=== PATIENT | female | born 2000 | race Caucasian/White ===

== ENCOUNTER 2021-07-01 17:55 | Emergency (ER) | payer OTHER, SELFPAY ==
--- NOTE | 2021-07-01 18:00 | ED.EAR ---
HPI - Ear Problem General Chief complaint: Ear Stated complaint: ear pain Time Seen by Provider: 07/01/21 18:00 Source: patient, RN notes reviewed and old records reviewed Mode of arrival: ambulatory Limitations: no limitations History of Present Illness HPI Narrative: 20-year-old female presents to the [facility] with complaints of right ear pain. Since last night. No treatment prior to arrival. MD Complaint: ear pain Related Data Home Medications Medication Instructions Recorded Confirmed medroxyprogesterone 150 mg/mL 150 mg IM [id number] 07/22/19 07/22/19 intramuscular suspension Allergies Allergy/AdvReac Type Severity Reaction Status Date / Time No Known Allergies Allergy Mild Verified 07/01/21 17:56 Review of Systems Review of Systems: All systems reviewed & are unremarkable except as noted in HPI and below Constitutional: Constitutional: Reports no additional constitutional complaints, Denies chills and Denies fever(s) Eyes: Eyes: Reports no additional eye complaints ENT: Reports as per HPI, Denies change in voice, Denies dental pain, Denies vertigo, Denies dizziness and Denies throat swelling Comments: Ear pain right Cardiovascular: Cardiovascular: Denies no additional cardiovascular complaints, Denies chest pain and Denies dyspnea Respiratory: Respiratory: Denies no additional respiratory complaints, Denies cough and Denies dyspnea Gastrointestinal: Gastrointestinal: Reports no additional gastrointestinal complaints, Denies abdominal pain, Denies nausea and Denies vomiting Musculoskeletal: Musculoskeletal: Reports no additional musculoskeletal complaints Integumentary/Breasts: Skin/Breast: Reports system reviewed and no additional complaints, except as docu Neurologic: Reports system reviewed and no additional complaints, except as documented, Denies vertigo and Denies dizziness Psychiatric: Psychiatric: Reports no additional psychiatric complaints Allergic/Immunologic: Allergic/Immunologic: Reports no additional allergic/immunologic complaints and Denies throat swelling PMFSH Past Medical History Medical History Patient denies medical problems Surgical History Surgical History (Updated 07/01/21 @ 18:14 by Angeline Wagner) No significant past surgical history Family History Family History Father Diabetes mellitus Hypertension Mother Lung cancer Social History Social History Smoking status: Never smoker Alcohol intake: never Substance use: never Substance use type: does not use Gender identity (if verbalized by the patient): Female Comments At the time of my signature, I reviewed and agree with the nursing past medical, surgical, social, and family history. There is no relevant family history pertinent to the patient complaint. Exam Const: General: healthy appearing, no acute distress and alert Nutritional Appearance: well nourished Orientation/consciousness: patient oriented x3 Limitations: no limitations HENMT: Head: normal to inspection Ears: external ears normal, TM's normal bilaterally and EAC's normal General nose exam: Normal external nose present and Normal nasal mucous membranes and turbinates present Face and sinus: normal facial exam Mouth: Yes Normal oral and palatal mucosa present and Yes moist mucous membranes Teeth and gingiva: abnormal tooth and associated gingiva lower right third molar with associated gingival edema and enamel fractured and poor dentition Teeth image: 1. Severely decayed teeth. Surrounding gingiva red, inflamed Throat: posterior oropharynx normal, tonsils normal and uvula midline Eyes: Conjunctivae: conjunctivae normal Pupils: Equal, round and reactive pupils present Neck: Neck: normal visual inspection, no lymphadenopathy and no meningeal signs Chest: Chest palpation & inspect
[2021-07-01 18:03] VITALS: BP 136/85; PULSE 97; RESP 18; TEMP 36.5; O2SAT 100
== END 2021-07-01 18:15 | disposition home or self-care (01) ==
PROVIDERS: Emergency Provider Nurse Practitioner; PCP Family Medicine
DX: K02.9 Dental caries, unspecified (principal); K04.7 Periapical abscess without sinus
CPT/HCPCS: 99213; G0463

== ENCOUNTER 2024-01-11 20:56 | Emergency (ER) | payer BC, MEDICAID, SELFPAY ==
[2024-01-11 21:02] VITALS: BP 116/74; PULSE 99; RESP 16; TEMP 36.6; O2SAT 100
[2024-01-11 23:02] LABS: Appearance Urine Cloudy (Clear); Bacteria Urine 4+ /hpf; Bilirubin Urine Negative (Negative); Blood Urine Negative (Negative); Color Urine Yellow (Yellow); Glucose Urine UA Negative (Negative); Ketones Urine Trace mg/dL (Negative); Leukocyte Esterase Ur Negative LEU/UL (Negative); Mucus Urine Present /lpf; Need Manual Microscopic Reviewed; Nitrate Urine Negative (Negative); Non Pathogenic Casts 0-2; Protein Urine Negative (Negative); RBC Urine 0-2 /hpf (0-2); Specific Grav Ur 1.037 (1.001-1.035); Squamous Epithelial Cell Urine Moderate /hpf (Few); WBC Urine 21-50 /hpf (0-3); pH Urine 5.5 (5.0-9.0)
[2024-01-11 23:07] LABS: Add Urine Microscopic? YES
--- NOTE | 2024-01-12 00:01 | ED.GENADULT ---
HPI - General Adult General Chief complaint: Unspecified Stated complaint: request preg test Time Seen by Provider: 01/11/24 22:48 Source: patient Mode of arrival: ambulatory Limitations: no limitations History of Present Illness HPI narrative: This is a 23-year-old female that presents to the emergency department requesting a test. Reports her last menstrual period was 10/31/2023. Reports having a positive home test. She presented to the ER for confirmation. Reports some nausea and urinary frequency. Denies fevers or vomiting. Related Data Home Medications Medication Instructions Recorded Confirmed medroxyprogesterone 150 mg/mL 150 mg IM [id number] 07/22/19 07/22/19 intramuscular suspension (Depo-Provera) Allergies Allergy/AdvReac Type Severity Reaction Status Date / Time No Known Allergies Allergy Mild Verified 08/15/21 13:22 Review of Systems Review of Systems: CONSTITUTIONAL: Denies fever GASTROINTESTINAL: Denies abdominal pain, nausea, vomiting GENITOURINARY: Denies dysuria or hematuria. All systems reviewed & are unremarkable except as noted in HPI and below PMFSH Past Medical History Medical History Patient denies medical problems Surgical History Surgical History No significant past surgical history Family History Family History Father Diabetes mellitus Hypertension Mother Lung cancer Social History Social History Smoking status: Never smoker Alcohol intake: never Substance use: never Substance use type: does not use Living arrangements: with family Occupation/Education: student Gender identity (if verbalized by the patient): Female Exam Narrative: GENERAL: Well-appearing, well-nourished, and in no acute distress. HEAD: Normocephalic, atraumatic. EYES: EOMI. CHEST: Clear to auscultation. No respiratory distress. No wheezes rales or rhonchi HEART: Regular rate and rhythm. No murmur heard. Normal peripheral pulses. ABDOMEN: Soft, nontender, nondistended, normal active bowel sounds. EXTREMITIES: Normal range of motion. No edema. SKIN: Warm, dry, no rash. NEURO: No focal deficits. Alert and oriented x3. PSYCH: Normal mood and affect Course Course Emergency Course: Patient updated on her workup and agrees with plan of care Vital Signs Vital signs: Vital Signs Temperature 97.9 F 01/11/24 21:02 Pulse Rate 99 01/11/24 21:02 Respiratory Rate 16 01/11/24 21:02 Blood Pressure 116/74 01/11/24 21:02 Pulse Oximetry 100 01/11/24 21:02 Oxygen Delivery Room Air 01/11/24 21:02 Temperature 97.9 F 01/11/24 21:02 Pulse Rate 99 01/11/24 21:02 Respiratory Rate 16 01/11/24 21:02 Blood Pressure 116/74 01/11/24 21:02 Pulse Oximetry 100 01/11/24 21:02 Oxygen Delivery Room Air 01/11/24 21:02 Medical Decision Making MDM Narrative Medical decision making narrative: Patient presents to the emergency department for confirmation of . She did have a positive urine test here. Patient would be about 10 weeks by LMP. Urine shows some bacteria. Likely contamination, but with positive test will be started on Macrobid. Instructed to have follow-up with OB. She was given warnings to return to the ER Vital Signs Vital Signs: Vital Signs Temperature 97.9 F 01/11/24 21:02 Pulse Rate 99 01/11/24 21:02 Respiratory Rate 16 01/11/24 21:02 Blood Pressure 116/74 01/11/24 21:02 Pulse Oximetry 100 01/11/24 21:02 Oxygen Delivery Room Air 01/11/24 21:02 Temperature 97.9 F 01/11/24 21:02 Pulse Rate 99 01/11/24 21:02 Respiratory Rate 16 01/11/24 21:02 Blood Pressure 116/74 01/11/24 21:02 Pulse Oximetry 100 01/11/24
[2024-01-12 00:10] VITALS: BP 120/77; PULSE 94; RESP 17; O2SAT 99
== END 2024-01-12 00:12 | disposition home or self-care (01) ==
PROVIDERS: Emergency Medicine; Emergency Provider Physician Assistant; PCP Family Medicine
DX: O26.891 Other specified pregnancy related conditions, first trimester (principal); R82.71 Bacteriuria; Z3A.10 10 weeks gestation of pregnancy
CPT/HCPCS: 81001; 81025; 87086; 99283

== ENCOUNTER 2024-04-30 00:55 | Emergency (ER) | payer OTHER, SELFPAY ==
[2024-04-30 00:56] VITALS: BP 110/70; PULSE 76; RESP 14; TEMP 36.6; O2SAT 100
--- NOTE | 2024-04-30 01:09 | ED.GENADULT ---
HPI - General Adult General Chief complaint: Unspecified Stated complaint: i think I have hemroids Time Seen by Provider: 04/30/24 01:06 Source: patient Mode of arrival: ambulatory Limitations: no limitations History of Present Illness HPI narrative: This is a 23-year-old female that presents to the emergency department for possible hemorrhoids. Reports pain and swelling in the area. She does have trouble with constipation. She is currently 29 weeks . Has no other related concerns. Is following with an OB at [place]. Denies rectal bleeding. Related Data Home Medications Medication Instructions Recorded Confirmed medroxyprogesterone 150 mg/mL 150 mg IM [id number] 07/22/19 07/22/19 intramuscular suspension (Depo-Provera) Allergies Allergy/AdvReac Type Severity Reaction Status Date / Time No Known Allergies Allergy Mild Verified 08/15/21 13:22 Review of Systems Review of Systems: CONSTITUTIONAL: Denies fever GASTROINTESTINAL: Denies abdominal pain, rectal bleeding All systems reviewed & are unremarkable except as noted in HPI and below PMFSH Past Medical History Medical History Patient denies medical problems Surgical History Surgical History No significant past surgical history Family History Family History Father Diabetes mellitus Hypertension Mother Lung cancer Social History Social History Smoking status: Never smoker Alcohol intake: never Substance use: never Substance use type: does not use Living arrangements: with family Occupation/Education: student Gender identity (if verbalized by the patient): Female Exam Narrative: GENERAL: Well-appearing, well-nourished, and in no acute distress. HEAD: Normocephalic, atraumatic. EYES: EOMI. EXTREMITIES: Normal range of motion. No edema. SKIN: Warm, dry, no rash. NEURO: No focal deficits. Alert and oriented x3. PSYCH: Normal mood and affect RECTAL: Two small hemorrhoids present, nonthrombosed. No active bleeding Course Course Emergency Course: patient agrees with plan of care Vital Signs Vital signs: Vital Signs Temperature 97.9 F 04/30/24 00:56 Pulse Rate 76 04/30/24 00:56 Respiratory Rate 14 04/30/24 00:56 Blood Pressure 110/70 04/30/24 00:56 Pulse Oximetry 100 04/30/24 00:56 Oxygen Delivery Room Air 04/30/24 00:56 Temperature 97.9 F 04/30/24 00:56 Pulse Rate 76 04/30/24 00:56 Respiratory Rate 14 04/30/24 00:56 Blood Pressure 110/70 04/30/24 00:56 Pulse Oximetry 100 04/30/24 00:56 Oxygen Delivery Room Air 04/30/24 00:56 Medical Decision Making MDM Narrative Medical decision making narrative: patient presents to the emergency department for hemorrhoids. Patient is currently 29 weeks . She has no other related concerns. Is following with an OB at [place]. instructed on further care of constipation. Will be prescribed steroid cream. She is to follow up with her OB. She was given warnings to return to the ER Vital Signs Vital Signs: Vital Signs Temperature 97.9 F 04/30/24 00:56 Pulse Rate 76 04/30/24 00:56 Respiratory Rate 14 04/30/24 00:56 Blood Pressure 110/70 04/30/24 00:56 Pulse Oximetry 100 04/30/24 00:56 Oxygen Delivery Room Air 04/30/24 00:56 Temperature 97.9 F 04/30/24 00:56 Pulse Rate 76 04/30/24 00:56 Respiratory Rate 14 04/30/24 00:56 Blood Pressure 110/70 04/30/24 00:56 Pulse Oximetry 100 04/30/24 00:56 Oxygen Delivery Room Air 04/30/24 00:56 Critical Care Time Critical Care Time Critical Care Time: No Discharge Plan Discharge Clinical Impression: Hemorrhoid Qualifiers: Hemorrhoid type: unspecified Qualified Code(s): K64.9 - Unspecified hemorrhoids Patient Disposition: Home, Self-Care Condition: Stable Instructions: Constipation (ED), Hemorrhoids (ED) Additional Instructions: Return to the ER if you experience fevers, blood in the stool, or any other symptoms that are concerning to you Remain well hydrated. Take Colace daily. Apply hydrocortisone cream twice daily for 1 week Follow up with your OB Prescriptions: New hydrocortisone 1 % cream 1 applic topical BID 7 Days Qty: 28.35 0RF No Action medroxyprogesterone [Depo-Provera] 150 mg/mL suspension 150 mg IM [id number] clotrimazole 1 % cream 1 applic topical Q12H 28 Days Qty: 45 2RF nitrofurantoin monohyd/m-cryst [Macrobid] 100 mg capsule 100 mg PO Q12H 5 Days Qty: 10 0RF Rx Instructions: must administer with a meal/food Follow-up/Referrals: Ascencion Eubanks MD [Primary Care Provider] -
== END 2024-04-30 01:47 | disposition home or self-care (01) ==
PROVIDERS: Emergency Provider Physician Assistant; PCP Family Medicine
DX: O22.43 Hemorrhoids in pregnancy, third trimester (principal); Z3A.29 29 weeks gestation of pregnancy
CPT/HCPCS: 99283